=== PATIENT | female | born 1985 ===

== ENCOUNTER 2018-02-22 13:56 | Emergency (ER) | payer OTHER ==
[~2018-02-22] VITALS: Ht 165.1 cm; Wt 125.6 kg
[~2018-02-22 13:56] MED LIST: CIPRO500 MG PO; KETO10TA2 PO
[2018-02-22] MEDS ORDERED: METOPROLOL SUCC50 MG (14:05)
== END 2018-02-22 20:43 | disposition home or self-care (01) ==
LOC: ER 13:56
DX: S90.02XA Contusion of left ankle, initial encounter (principal); M25.572 Pain in left ankle and joints of left foot; W18.39XA Other fall on same level, initial encounter; Y93.89 Activity, other specified; Y92.89 Other specified places as the place of occurrence of the external cause; Y99.8 Other external cause status

== ENCOUNTER 2018-06-11 18:44 | Emergency (ER) | payer OTHER ==
[~2018-06-11] VITALS: Ht 165.1 cm; Wt 113.4 kg
[~2018-06-11 18:44] MED LIST changes: +METOPROLOL SUCC50 MG
== END 2018-06-11 23:41 | disposition home or self-care (01) ==
LOC: ER 18:44
DX: N88.8 Other specified noninflammatory disorders of cervix uteri (principal); N93.8 Other specified abnormal uterine and vaginal bleeding

== ENCOUNTER 2018-08-26 19:18 | Emergency (ER) | payer OTHER ==
[~2018-08-26] VITALS: Ht 167.6 cm; Wt 113.4 kg
== END 2018-08-26 22:44 | disposition home or self-care (01) ==
LOC: ER 19:18
DX: K29.70 Gastritis, unspecified, without bleeding (principal)

== ENCOUNTER 2022-05-09 12:28 | Emergency (ER) | payer OTHER ==
[~2022-05-09] VITALS: Ht 167.6 cm; Wt 140.6 kg
[2022-05-09] MEDS ORDERED: VERELAN240 MG (13:11)
[2022-05-09] MEDS ORDERED: INDOMETHACIN50 MG (13:11)
[2022-05-09] MEDS ORDERED: ZITHROMAX500 MG PO (19:36)
== END 2022-05-09 19:54 | disposition home or self-care (01) ==
LOC: ER 12:28
DX: U07.1 COVID-19 (principal); R06.02 Shortness of breath; J06.9 Acute upper respiratory infection, unspecified; Z88.6 Allergy status to analgesic agent; Z88.8 Allergy status to other drugs, medicaments and biological substances

== ENCOUNTER 2022-05-12 10:10 | Outpatient (CLI) | payer OTHER ==
[~2022-05-12 10:10] MED LIST changes: +INDOMETHACIN50 MG; +VERELAN240 MG; +ZITHROMAX500 MG PO
== END 2022-05-12 12:00 | disposition home or self-care (01) ==
LOC: ASH CLINIC 10:10
PROVIDERS: ATTEND General Practice
DX: U07.1 COVID-19 (principal)